=== PATIENT | female | born 1960 | race Caucasian/White ===

== ENCOUNTER 2022-10-11 07:20 | Inpatient (IN) | payer BC ==
[~2022-10-11] VITALS: Ht 152.4 cm; Wt 65.8 kg
[2022-10-11] MEDS ORDERED: cefTRIAXone 1,000 MG in DEXT 5% MINI-BAG PLUS 50 ML IV ONE (07:45)
[2022-10-11 07:47] VITALS: BP 138/72
--- NOTE | 2022-10-11 08:14 | NUR ---
X-Ray at bedside.
[2022-10-11] MEDS ORDERED: cefTRIAXone 1,000 MG VIAL ONE (08:16)
[2022-10-11 08:23] LABS: EOSINOPHILS # (AUTO) 0.1 K/uL (0-0.4); EOSINOPHILS % (AUTO) 2.3 % (0.0-4.0); HEMATOCRIT 44.2 % (36-48); HEMOGLOBIN 14.6 g/dL (12.0-16.0); LYMPHOCYTES # (AUTO) 1.6 K/uL (2.5-16.5); MEAN CORPUSCULAR HEMOGLOBIN 32 pg (27-31); MEAN CORPUSCULAR HGB CONC 33 g/dL (33-37); MEAN CORPUSCULAR VOLUME 95.4 fL (80-94); MONOCYTES # (AUTO) 0.3 K/uL (0.8-1.0); MONOCYTES % (AUTO) 7.6 % (1.7-9.3); NEUTROPHILS % (AUTO) 49.1 % (42.2-75.2); PLATELET COUNT (AUTO) 226 K/uL (140-450); RED BLOOD CELL COUNT(AUTO) 4.63 MIL/uL (4.20-5.40); RED CELL DISTRIBUTION WIDTH 13.3 % (11.6-13.7)
[2022-10-11 08:40] LABS: ANION GAP 11.1 (8-16); ASPARTATE AMINOTRANSFERASE 26 U/L (15-37); CARBON DIOXIDE 27.5 mmol/L (21-32); CHLORIDE 104 mmol/L (98-107); CREATININE 0.8 mg/dL (0.6-1.3); GFR ARICAN-AMERICAN 93 mL/min (>90); GLUCOSE 95 mg/dL (74-106); POTASSIUM 3.6 mmol/L (3.5-5.1); SODIUM SERUM 139 mmol/L (136-145); TOTAL BILIRUBIN 0.5 mg/dL (0.0-1.0); UREA NITROGEN, BLOOD 12 mg/dL (7-18)
--- NOTE | 2022-10-11 08:46 | NUR ---
62 y/o female bib daughter as a referal from Dr. Ying to have cyst removed from right breast. Patient is noted to have redness to right breast and heat. Patient reports she had pus draining previously and has stopped. Patient only has pain when touching the area. Medical History: Pre-Diabetes NKDA
[2022-10-11] MEDS ORDERED: SULF-58 PO (08:49)
[2022-10-11] MEDS ORDERED: CEPH-588 PO (08:49)
--- NOTE | 2022-10-11 11:18 | NUR ---
Patient will be admitted to care of DR. ESPINO. Admited to [facility]. Will go to room 106-A. Belongings list completed. Report to [facility].
[2022-10-11] MEDS ORDERED: ONDANSETRON 4 MG/2 ML VIAL IVP PRN ×2 (11:20→17:05)
[2022-10-11] MEDS ORDERED: HYDROcodone/APAP 7.5/325 MG 1 TAB PO PRN (11:20)
[2022-10-11] MEDS ORDERED: ACETAMINOPHEN 325 MG TAB PO PRN (11:20)
[2022-10-11] MEDS ORDERED: MAG SULF 2000 MG/WATER PREMIX 50 ML IV PRN (11:20)
[2022-10-11] MEDS ORDERED: NACL 0.9% 1,000 ML IV SCH (11:20)
[2022-10-11] MEDS ORDERED: POTASSIUM CHLORIDE 10 MEQ TABER PO PRN (11:20)
[2022-10-11 11:22] VITALS: BP 133/70
--- NOTE | 2022-10-11 11:22 | NUR ---
PT BROUGHT IN FROM ED STABLE CONDITION, ABLE TO AMBULATE TO BED WITH STEADY GAIT. ROOM AIRE WITH CHEST RISING AND FALLING AND UNLABORED. IV LEFT A/C 20 GAUGE, PATENT AND INTACT, LUNGS CLEAR, ACTIVE BOWEL SOUNDS, PT NPO FOR I&D WITH DR. LOVE. PENDING OR TO SCHEDULED I&D.
--- NOTE | 2022-10-11 11:33 | NUR ---
The patient's care was reviewed and supervised by ED Agency Nurse 8, RN, RN.
[2022-10-11 12:07] LABS: ANION GAP 10.2 (8-16); CARBON DIOXIDE 27.2 mmol/L (21-32); CREATININE 0.8 mg/dL (0.6-1.3); POTASSIUM 4.4 mmol/L (3.5-5.1)
[2022-10-11 12:19] LABS: CHOL/HDL RATIO 2.4 (1-4.5); FREE T4 (FREE THYROXINE) 0.99 ng/dL (0.76-1.46); MAGNESIUM 2.3 mg/dL (1.8-2.4); PHOSPHORUS 3.6 mg/dL (2.5-4.9); THYROID STIMULATING HORMONE 1.16 uIU/mL (0.34-3.74)
[2022-10-11] MEDS ORDERED: BUPIVACAINE-MPF 0.25% 30 ML VIAL INJ ONE (15:46)
[2022-10-11] MEDS ORDERED: LIDOCAINE 1% 500 MG/50 ML VIAL ONE (15:46)
[2022-10-11] MEDS ORDERED: BUPIVACAINE-MPF/EPI 0.25% 30 ML VIAL INJ ONE (15:46)
--- NOTE | 2022-10-11 15:56 | NUR ---
PATIENT HAS BEEN SCREENED AND CATEGORIZED LOW NUTRITION RISK. PATIENT WILL BE SEEN WITHIN 7 DAYS OF ADMISSION. 10/18/22 REVIEWED BY MATT ASTORGA RD
[2022-10-11 16:00] VITALS: BP 121/63
[2022-10-11] MEDS ORDERED: PROPOFOL 200 MG/20 ML VIAL IV ONE ×2 (16:10→16:14)
[2022-10-11] MEDS ORDERED: DEXAMETHASONE 4 MG/ML VIAL ONE ×3 (16:10→16:15)
[2022-10-11] MEDS ORDERED: KETOROLAC 30 MG/ML VIAL ONE ×3 (16:10→16:15)
[2022-10-11] MEDS ORDERED: ONDANSETRON 4 MG/2 ML VIAL ONE ×3 (16:10→16:15)
[2022-10-11] MEDS ORDERED: DESFLURANE 240 ML BTL INH ONE ×2 (16:14→16:15)
[2022-10-11] MEDS ORDERED: fentaNYL citrate 0.05 MG/ML VIAL ONE ×2 (16:14→16:22)
[2022-10-11] MEDS ORDERED: fentaNYL citrate 0.05 MG/ML - 50mL vial IV ONE (16:15)
[2022-10-11] MEDS ORDERED: HYDROmorphone 1 MG/ML AMP IVP PRN ×2 (17:00→17:05)
[2022-10-11] MEDS ORDERED: MORPHINE SULFATE 2 MG/ML SYR IVP PRN (17:00)
[2022-10-11] MEDS ORDERED: ONDANSETRON 4 MG/2 ML VIAL IV PRN (17:00)
[2022-10-11] MEDS ORDERED: MORPHINE SULFATE 4 MG/ML SYR IV PRN (17:00)
[2022-10-11 18:24] LABS: APPEARANCE,URINE CLEAR (CLEAR); BILIRUBIN,URINE NEGATIVE (NEGATIVE); BLOOD, URINE TRACE-I (NEGATIVE); COLOR,URINE YELLOW (YELLOW); LEUKOCYTE ESTERASE ,URINE NEGATIVE (NEGATIVE); NITRITE, URINE NEGATIVE (NEGATIVE); UGLUCOSE NEGATIVE (NEGATIVE)
[2022-10-11 18:42] LABS: BARBITURATE, URINE NEGATIVE ng/ml (NEG <=200)
[2022-10-11 18:43] LABS: BENZODIAZEPINE, URINE POSITIVE ng/mL (NEG <=200); CANNABINOID, URINE NEGATIVE ng/mL (NEG <=50); COCAINE, URINE NEGATIVE ng/mL (NEG <=300); OPIATE, URINE NEGATIVE ng/mL (NEG <=2000); PHENCYCLIDINE SCREEN,URINE NEGATIVE ng/mL (NEG <=25); RBC,URINE 0-5 /HPF (0-5)
[2022-10-11 19:53] VITALS: BP 102/53
[2022-10-11 20:00] VITALS: BP 116/68
[2022-10-11] MEDS ORDERED: DOCUSATE SODIUM 100 MG GELCAP PO SCH (21:00)
--- NOTE | 2022-10-11 21:05 | NUR ---
PT HAS BEEN DISCHARGED HOME AT 2104. TO TAKE PATIENT HOME. ALL BELONGINGS WITH PATIENT.
[2022-10-12] MEDS ORDERED: PANTOPRAZOLE 40 MG INJ VIAL IVP SCH (09:00)
== END 2022-10-11 21:05 | disposition home or self-care (01) | DRG 363 ==
LOC: MED 07:20 → MTU 09:05
PROC: 0H9T0ZZ Drainage of Right Breast, Open Approach (ICD-10-PCS; 2022-10-11)
PROC: 0HBT0ZZ Excision of Right Breast, Open Approach (ICD-10-PCS; principal; 2022-10-11 15:30)
DX: N61.1 Abscess of the breast and nipple (principal); D72.819 Decreased white blood cell count, unspecified; L72.3 Sebaceous cyst; N60.81 Other benign mammary dysplasias of right breast; L08.9 Local infection of the skin and subcutaneous tissue, unspecified; Z20.822 Contact with and (suspected) exposure to COVID-19; E78.5 Hyperlipidemia, unspecified; R73.03 Prediabetes; Z79.2 Long term (current) use of antibiotics; Z79.899 Other long term (current) drug therapy
CPT/HCPCS: 36415; 71045; 80048; 80053; 80305; 81001; 82140; 82150; 83036; 83605; 83690; 83735; 83880; 84100; 84439; 84443; 84484; 85025; 85610; 85730; 87040; 87070; 87075; 87081; 87086; 87205; 93005; 96365; 99285; J0696; J1100; J1170; J1885; J2001; J2405; J2704; J3010; J3490; J7060; J7120; Q0092